=== PATIENT | male | born 1985 | race Two or more races ===

== ENCOUNTER 2022-05-13 01:31 | Emergency (ER) | payer BC, OTHER ==
[~2022-05-13] VITALS: Ht 185.4 cm; Wt 120.0 kg
[2022-05-13 01:41] VITALS: BP 152/100
== END 2022-05-13 04:36 | disposition left against medical advice (07) ==
LOC: ER 01:31
DX: R51.9 Headache, unspecified (principal)
CPT/HCPCS: 70450; 72125